=== PATIENT | male | born 1950 | race Caucasian/White ===

== ENCOUNTER 2020-03-22 16:28 | Emergency (ER) | payer MEDICARE, OTHER ==
[2020-03-22 17:21] LABS: BILIRUBIN 1+ mg/dL (NEGATIVE); BLOOD 3+ Ery/uL (NEGATIVE); CLARITY CLOUDY (CLEAR); COLOR RED (YELLOW); GLUCOSE (U) NORMAL (NORMAL); LEUKOCYTES 2+ Leu/uL (NEGATIVE); NITRITE POSITIVE (NEGATIVE); PROTEIN 2+ mg/dL (NEGATIVE); SPECIFIC GRAVITY 1.015 (1.001-1.030); UROBILINOGEN 0.2 mg/dL (0.2-1.0)
[2020-03-22 17:25] LABS: BACTERIA TRACE; SQUAMOUS EPITHELIAL CELLS RARE; URINARY RBC TNTC
[2020-03-22 17:25] LABS: BASOPHIL 0.5 % (0-2); HCT 48.7 % (42.0-52.0); HGB 15.5 g/dl (13.2-18.0); LYMPHOCYTE 27.1 % (15-48); MCH 27.6 pg (25.0-31.0); MCHC 31.8 g/dL (32.0-36.0); MCV 86.8 fL (78.0-100.0); MONOCYTE 10.4 % (0-12); MPV 10.3 fL (6.0-9.5); NEUTROPHIL 59.6 % (41-80); NRBC 0; PLT 220 K/uL (150-400); RBC 5.61 M/uL (4.70-6.00); RDW 16.8 % (11.5-14.0); WBC 8.2 K/uL (4.0-10.5)
[2020-03-22 17:35] LABS: INR 0.98 (0.9-1.2); PROTHROMBIN TIME 12.3 SECONDS (11.4-13.6); PTT 29.2 SECONDS (22.2-34.7)
[2020-03-22 17:40] LABS: BUN/CREAT RATIO (CALC) 16.2 RATIO; CREATININE 1.17 mg/dL (0.67-1.17); POTASSIUM 4.4 mmol/L (3.5-5.1)
[2020-03-22] MEDS ORDERED: CIPRO500 MG PO (18:00)
== END 2020-03-22 18:09 | disposition home or self-care (01) ==
LOC: FER 16:28
PROVIDERS: Emergency Medicine
DX: R31.9 Hematuria, unspecified (principal); Z88.5 Allergy status to narcotic agent
CPT/HCPCS: 36415; 80048; 81001; 85025; 85610; 85730; 87088; 99283

== ENCOUNTER 2020-03-28 14:09 | Emergency (ER) | payer MEDICARE, OTHER ==
[~2020-03-28 14:09] MED LIST: CIPRO500 MG PO
[2020-03-28 15:37] LABS: BILIRUBIN NEGATIVE (NEGATIVE); BLOOD 3+ Ery/uL (NEGATIVE); GLUCOSE (U) NORMAL (NORMAL); LEUKOCYTES TRACE Leu/uL (NEGATIVE); NITRITE NEGATIVE (NEGATIVE); PROTEIN 3+ mg/dL (NEGATIVE); SPECIFIC GRAVITY 1.025 (1.001-1.030); UROBILINOGEN 0.2 mg/dL (0.2-1.0); pH 6.5 (5.0-9.0)
[2020-03-28 15:38] LABS: CLARITY HAZY (CLEAR); COLOR RED (YELLOW)
[2020-03-28 15:42] LABS: BACTERIA TRACE; URINARY RBC TNTC
[2020-03-28 18:08] LABS: BASOPHIL 0.5 % (0-2); EOSINOPHIL 1.8 % (0-7); LYMPHOCYTE 28.9 % (15-48); MCH 27.5 pg (25.0-31.0); MCHC 31.9 g/dL (32.0-36.0); MCV 86.1 fL (78.0-100.0); MPV 10.1 fL (6.0-9.5); NEUTROPHIL 59.5 % (41-80); NRBC 0; PLT 205 K/uL (150-400); RBC 5.46 M/uL (4.70-6.00); RDW 16.6 % (11.5-14.0); WBC 7.9 K/uL (4.0-10.5)
[2020-03-28 18:24] LABS: BUN/CREAT RATIO (CALC) 13.9 RATIO; CREATININE 1.01 mg/dL (0.67-1.17); POTASSIUM 4.5 mmol/L (3.5-5.1)
== END 2020-03-28 20:05 | disposition home or self-care (01) ==
LOC: FER 14:09
PROVIDERS: Emergency Medicine; Nurse Practitioner Family
DX: R31.0 Gross hematuria (principal); R30.0 Dysuria; R35.0 Frequency of micturition; R39.11 Hesitancy of micturition
CPT/HCPCS: 36415; 80048; 81001; 85025; 99283